=== PATIENT | female | born 1970 ===

== ENCOUNTER 2017-11-15 12:14 | Emergency (ER) | payer MEDICAID, OTHER ==
[2017-11-15 12:14] VITALS: BMI 25.4
[2017-11-15 12:41] VITALS: RESP 18
[2017-11-15] MEDS ORDERED: DiphenhydrAMINE 50 mg/ml Inj IVP STA (14:21)
--- NOTE | 2017-11-15 14:22 | C.PDOC ---
History Of Present Illness 47 y/o female presents to ED with complaints of gradual onset headache radiating to neck and right arm for 4 days. Patient reports associated nausea, dizziness "room spinning" sensation and photophobia. Patient states she has been having this type of headache for 2 years and was seen at ED in past for same but denies follow up with neurology. Patient took 2 ibuprofen this morning with no relief. Patient admits to cloudy vision and denies "worse headache of my life", associated thunder clap, vomiting or any other complaints at this time. Time Seen by Provider: 11/15/17 14:01 Chief Complaint (Nursing): Headache History Per: Patient History/Exam Limitations: no limitations Onset/Duration Of Symptoms: Days Current Symptoms Are (Timing): Still Present Quality: "Pain" Associated Symptoms: Photophobia, Blurred Vision, Nausea Past Medical History Reviewed: Historical Data, Nursing Documentation, Vital Signs Vital Signs: Last Vital Signs Temp 98.0 F 11/15/17 12:38 Pulse 82 11/15/17 12:38 Resp 18 11/15/17 12:38 BP 121/81 11/15/17 12:38 Pulse Ox 99 11/15/17 15:37 - Medical History PMH: Migraine Surgical History: No Surg Hx Family History: States: No Known Family Hx - Social History Hx Alcohol Use: No Hx Substance Use: No - Immunization History Hx Tetanus Toxoid Vaccination: No Hx Influenza Vaccination: No Hx Pneumococcal Vaccination: No Review Of Systems Except As Marked, All Systems Reviewed And Found Negative. Eyes: Positive for: Vision Change Gastrointestinal: Positive for: Nausea Musculoskeletal: Positive for: Neck Pain, Arm Pain Neurological: Positive for: Headache, Dizziness Physical Exam - Physical Exam Appears: Non-toxic, No Acute Distress Skin: Warm, Dry, No Rash Head: Atraumatic, Normacephalic Eye(s): bilateral: Normal Inspection Oral Mucosa: Moist Neck: Normal ROM, Supple Cardiovascular: Rhythm Regular Respiratory: Normal Breath Sounds, No Rales, No Rhonchi, No Wheezing Gastrointestinal/Abdominal: Soft, No Tenderness, No Guarding, No Rebound Neurological/Psych: Oriented x3, Normal Speech, Normal Cranial Nerves, Normal Motor, Normal Sensation Gait: Steady ED Course And Treatment O2 Sat by Pulse Oximetry: 99 (RA) Pulse Ox Interpretation: Normal Medical Decision Making Medical Decision Making: Assessment: CHILEL, Sinusitis Progress: On re evaluation patient feeling better will be d/c with headache and sinusitis advised follow up with Dr. Robbins Disposition Counseled Patient/Family Regarding: Studies Performed, Diagnosis, Need For Followup, Rx Given - Disposition Referrals: Gaurav Robbins MD [Staff Provider] - Disposition: HOME/ ROUTINE Disposition Time: 15:36 Condition: STABLE Additional Instructions: follow up with your doctor in 2 days call to make an appointment take medications as prescribed return to ED if symptoms worsens or progress Prescriptions: Naproxen [Naprosyn] 500 mg PO BID PRN #16 tab PRN Reason: Pain, Moderate (4-7) Sulfamethoxazole/Trimethoprim [Bactrim DS 800 mg-160 mg] 1 tab PO BID #14 tab Instructions: Sinus Headache (DC) Forms: Gen Discharge Inst Kinyarwanda, [facility] (Kinyarwanda) Print Language: MARSHALLESE - Clinical Impression Clinical Impression: Headache, Sinusitis - Scribe Statement The provider has reviewed the documentation as recorded by the [facility] All medical record entries made by the Shady[facility] were at my direction and personally dictated by me. I have reviewed the chart and agree that the record accurately reflects my personal performance of the history, physical exam, medical decision making, and the department course for this patient. I have also personally directed, reviewed, and agree with the discharge instructions and disposition.
[2017-11-15] MEDS ORDERED: DiphenhydrAMINE 50 mg/ml Inj ONE (14:41)
--- NOTE | 2017-11-15 15:07 | CT ---
PROCEDURE: CT HEAD WITHOUT CONTRAST. HISTORY: dizziness COMPARISON: None available. TECHNIQUE: Axial computed tomography images were obtained through the head/brain without intravenous contrast. Radiation dose: Total exam DLP = 826.89 mGy-cm. This CT exam was performed using one or more of the following dose reduction techniques: Automated exposure control, adjustment of the mA and/or kV according to patient size, and/or use of iterative reconstruction technique. FINDINGS: HEMORRHAGE: No intracranial hemorrhage. BRAIN: No mass effect or edema. Intracranial atherosclerosis. Bilateral basal ganglia calcifications. The childers-white matter differentiation appears intact. Please note that MRI with diffusion imaging is more sensitive in the detection of acute ischemic event. VENTRICLES: No hydrocephalus. CALVARIUM: Unremarkable. PARANASAL SINUSES: Extensive mucosal thickening of the ethmoid air cells. Small fluid/ mucosal thickening of the partially imaged bilateral maxillary sinuses. MASTOID AIR CELLS: Unremarkable as visualized. No inflammatory changes. OTHER FINDINGS: None. IMPRESSION: No acute intracranial pathology identified. Extensive mucosal thickening of the ethmoid air cells. Small fluid/ mucosal thickening of the partially imaged bilateral maxillary sinuses. Correlate clinically for sinusitis.
[2017-11-15 16:05] VITALS: BP 120/81; PULSE 72; TEMP 98.2; O2SAT 98
== END 2017-11-15 16:04 | disposition home or self-care (01) ==
LOC: C.ER 12:14
DX: J32.9 Chronic sinusitis, unspecified (principal); R51 Headache
CPT/HCPCS: 70450; 96374; 96375; 99285; J1200; J2765